=== PATIENT | male | born 1970 | race Caucasian/White ===

== ENCOUNTER 2017-10-02 14:48 | Emergency (ER) | payer BC, SELFPAY ==
[2017-10-02 14:53] VITALS: BP 127/84; PULSE 69; RESP 20; TEMP 36.8; O2SAT 99
--- NOTE | 2017-10-02 17:29 | ED.SOB ---
HPI - SOB/Dyspnea <Sabina Purcell PA-C - Last Filed: 10/02/17 22:30> General Chief Complaint: Shortness of Breath/Dyspnea Stated Complaint: HARD TO BREATH,THINKS ALLERGIES Time Seen by Provider: 10/02/17 17:30 Source: patient and family Mode of arrival: ambulatory Limitations: no limitations History of Present Illness This 46-year-old male comes in due to what he believes is allergy exacerbation today. He states that he has never had a formal diagnosis, but at this time of year tends to get sinus and nasal congestion, drainage, ocular symptoms. He does use antihistamines as needed. He was seen here last month and started on Claritin and Flonase, but he states his symptoms have not improved. He changed to Zyrtec without improvement. He has had persistent sinus pressure, ear popping and pressure, itchy, watery eyes, postnasal drip. He has some intermittent cough associated with this, and states that he has had discolored nasal drainage for the last week. He states that he does have some sinus pain. He denies any toothache or fever and states that he does not feel sick. He states that he started to feel worse today after the lawn was being mowed close by just outside of his building. He has not had any facial swelling or wheezing but states that his chest felt a little tight as well as the congestion and sinus pressure being worse. He denies any chest pain, rash, facial swelling, or other complaints on systems review Related Data Previous Rx's Medication Instructions Recorded fluoxetine 40 mg PO QDAY #180 cap 08/10/17 levothyroxine 0.175 mg PO QAM #90 tab 08/10/17 omeprazole 40 mg PO QDAY #90 cap 08/10/17 fluticasone 1 spray INTRANASAL BID #16 gm 08/15/17 loratadine [Claritin Liqui-Gel] 10 mg PO QDAY #30 sgl 08/15/17 albuterol sulfate 2 inhalation INHALATION Q4H PRN 30 10/02/17 Days #1 gram montelukast [Singulair] 10 mg PO QPM #14 tab 10/02/17 Allergies Allergy/AdvReac Type Severity Reaction Status Date / Time metronidazole [From FLAGYL] Allergy Mild DIZZY,BLURRED Verified 10/02/17 14:59 VISION, NAUSEA morphine [MORPHINE] Allergy Mild ARM Verified 10/02/17 14:59 SWELLED UP Review of Systems <ESCOBAR Lopez Last Filed: 10/02/17 22:30> Review of Systems All systems reviewed & are unremarkable except as noted in HPI and below Exam <ESCOBAR Lopez Last Filed: 10/02/17 22:30> Narrative Exam Narrative: GENERAL APPEARANCE: Patient sitting comfortably, in no distress. HEAD: Moderate bilateral maxillary tenderness, no frontal tenderness EYES: PERRL, EOMI. EARS: Normal auditory canals, TMS intact with dull light reflexes ORAL CAVITY: Normal oropharynx. No tongue or perioral edema noted THROAT: Clear. PND noted NECK/THYROID: Neck supple, full range of motion, no cervical lymphadenopathy. LUNGS: Clear to auscultation bilaterally, clear to percussion, no cough on exam. HEART: RRR without murmur, nl S1, S2, no S3 or S4. DERM: No exanthem Initial Vital Signs Initial Vital Signs: Vital Signs Temperature 98.3 F 10/02/17 14:53 Pulse Rate 69 10/02/17 14:53 Respiratory Rate 20 10/02/17 14:53 Blood Pressure 127/84 H 10/02/17 14:53 Pulse Oximetry 99 10/02/17 14:53 <Nagi Hardin DO - Last Filed: 10/03/17 07:49> Initial Vital Signs Initial Vital Signs: Vital Signs Temperature 98.3 F 10/02/17 14:53 Pulse Rate 69 10/02/17 14:53 Respiratory Rate 20 10/02/17 14:53 Blood Pressure 127/84 H 10/02/17 14:53 Pulse Oximetry 99 10/02/17 14:53 Course <ESCBOAR Lopez Last Filed: 10/02/17 22:30> Hospital Course: Patient reported subjective improvement following neb treatment. He was given a prescription for Singulair to add to his allergy regimen and also advised to use nasal irrigation. Advised follow-up with his PCP and to consider course of antibiotics if not improving and continued purulent nasal discharge and sinus pain. Orders Ordered: Discontinued Medications Albuterol (Ventolin) 2.5 mg INH NOW ONE Stop: 10/02/17 17:49 Last Admin: 10/02/17 18:10 Dose: 2.5 mg Vital Signs - 8 hr 10/02/17 14:53 10/02/17 18:11 Temperature 98.3 F Pulse Rate 69 64 Respiratory Rate 20 17 Blood Pressure 127/84 H Pulse Oximetry 99 99 <Nagi Hardin - Last Filed: 10/03/17 07:49> Orders Ordered: Discontinued Medications Albuterol (Ventolin) 2.5 mg INH NOW ONE Stop: 10/02/17 17:49 Last Admin: 10/02/17 18:10 Dose: 2.5 mg Vital Signs - 8 hr 10/02/17 14:53 10/02/17 18:11 Temperature 98.3 F Pulse Rate 69 64 Respiratory Rate 20 17 Blood Pressure 127/84 H Pulse Oximetry 99 99 Discharge Plan Departure Patient Disposition: Home, Self-Care Clinical Impression: Environmental allergies, RAD (reactive airway disease) Discharge Date/Time: 10/02/17 18:39 Interventions: ED Discharge Assessment Last Done: 10/02/17 18:39 Instructions: The Connection Between Allergies and Asthma, Allergic Rhinitis Activity Restrictions/Additional Instructions: Return if you are feeling acutely worse, otherwise continue your Zyrtec. Continue your Flonase, but be sure to do a saline nasal irrigation or Neti pot prior to help clear out the congestion. At the prescription Singulair once daily, which works by a different mechanism. Also keep the inhaler with you and use this as needed if your chest feels tight. See your PCP in a few days to assess your progress. As we talked about, if you continued to have sinus pain and discolored drainage, it may be helpful to try an antibiotic even though you have not felt sick. Prescriptions: New albuterol sulfate 90 mcg/actuation HFA aerosol inhaler 2 inhalation INHALATION Q4H PRN (Reason: shortness of breath) 30 Days Qty: 1 RF: 0 montelukast [Singulair] 10 mg tablet 10 mg PO QPM Qty: 14 RF: 0 No Action levothyroxine 175 MCG tablet 0.175 mg PO QAM Qty: 90 RF: 3 omeprazole 40 MG capsule,delayed release(DR/EC) 40 mg PO QDAY Qty: 90 RF: 3 fluoxetine 20 MG capsule 40 mg PO QDAY Qty: 180 RF: 3 fluticasone 16 GM spray,suspension 1 spray Intranasal BID Qty: 16 RF: 0 loratadine [Claritin Liqui-Gel] 10 MG capsule 10 mg PO QDAY Qty: 30 RF: 0 Referrals: Rangel Santiago MD [Primary Care Provider] - <Nagi Hardin DO - Last Filed: 10/03/17 07:49> Cosign ED Attending Maraature Attestation: I was available for consultation during this patient's emergency department encounter
[2017-10-02] MEDS: ALBUTEROL 2.5 MG/3 ML NEB INH (18:10)
[2017-10-02 18:11] VITALS: PULSE 64; RESP 17; O2SAT 99
== END 2017-10-02 18:39 | disposition home or self-care (01) ==
PROVIDERS: Emergency Provider Internal Medicine; Family Provider Family Medicine; PCP Family Medicine
DX: Z91.09 Other allergy status, other than to drugs and biological substances (principal); J45.909 Unspecified asthma, uncomplicated
CPT/HCPCS: 94640; 99282; 99283; J7613